=== PATIENT | male | born 1975 | race Two or more races ===

== ENCOUNTER 2021-04-03 09:01 | Outpatient (CLI) | payer OTHER | END 2021-04-03 12:06 | disposition home or self-care (01) | LOC: LAB 09:01 | DX: Z03.818 Encounter for observation for suspected exposure to other biological agents ruled out (principal) ==

== ENCOUNTER 2021-05-25 07:00 | Outpatient (CLI) | payer OTHER | END 2021-05-25 07:15 | disposition home or self-care (01) | LOC: PPH VACUNA 07:00 | PROVIDERS: ATTEND Emergency Medicine Pediatric Emergency Medicine | DX: Z23 Encounter for immunization (principal) ==

== ENCOUNTER → 2021-08-08 | Outpatient (CLI) | payer OTHER ==
[~2021-08-08] MED LIST: AZELASTIN-FLUTI23 GM; CLONAZEPAM0.5 M1 PO; PAXIL CR37.5 MG PO
== END | disposition home or self-care (01) ==
LOC: PPH VACUNA 08:00
PROVIDERS: ATTEND Emergency Medicine Pediatric Emergency Medicine
DX: Z23 Encounter for immunization (principal)
CPT/HCPCS: 90686; G0008

== ENCOUNTER 2021-09-05 13:11 | Outpatient (CLI) | payer OTHER | END 2021-09-05 15:16 | disposition home or self-care (01) | LOC: LAB 13:11 | PROVIDERS: ATTEND Emergency Medicine Pediatric Emergency Medicine | DX: Z03.818 Encounter for observation for suspected exposure to other biological agents ruled out (principal) ==

== ENCOUNTER 2021-09-11 10:00 | Inpatient (IN) | payer OTHER ==
[~2021-09-11] VITALS: Ht 172.7 cm; Wt 97.5 kg
[2021-09-11] MEDS ORDERED: CLONAZEPAM0.5 M1 PO (10:03)
[2021-09-11] MEDS ORDERED: PAXIL CR37.5 MG PO (10:03)
--- NOTE | 2021-09-11 10:09 | NUR ---
SE RECIBE PTE ALERTA Y ORIENTADO X3 QUIEN REFIERE DESDE HACE CHARLES SENTIRSE CON MALESTAR ESTOMACAL MILES DESDE FAY LOWERY SENTIDO UN DEJA DOLOR PELVICO Y SE LE ESTA DIFICULTANDO PARA IR AL TANNER. LOWERY CAMPOS DOS VECES Y REFIERE JENNY HECHO EN 2 OCASIONES POCA DIARREA. SE MONITOREAN S/V Y SE UBICA EN OBSERVACION.
[2021-09-12] MEDS ORDERED: AZELASTIN-FLUTI23 GM (08:14)
== END 2021-09-14 18:48 | disposition home or self-care (01) | DRG 392 ==
LOC: ER 10:00 → MEDI 17:44 → SURG 17:44
PROVIDERS: ADMIT Internal Medicine; ATTEND Internal Medicine
PROC: BW21YZZ Computerized Tomography (CT Scan) of Abdomen and Pelvis using Other Contrast (ICD-10-PCS; principal; 2021-09-11)
DX: K57.92 Diverticulitis of intestine, part unspecified, without perforation or abscess without bleeding (principal); R10.32 Left lower quadrant pain; Z20.822 Contact with and (suspected) exposure to COVID-19

== ENCOUNTER → 2021-09-18 12:48 | Outpatient (CLI) | payer OTHER | END | disposition home or self-care (01) | LOC: LAB 12:48 | PROVIDERS: ATTEND Emergency Medicine Pediatric Emergency Medicine | DX: Z03.818 Encounter for observation for suspected exposure to other biological agents ruled out (principal) ==

== ENCOUNTER 2021-11-05 10:25 | Outpatient (CLI) | payer OTHER | END 2021-11-05 11:00 | disposition home or self-care (01) | LOC: NUCLEAR 10:25 | PROVIDERS: ATTEND Internal Medicine Cardiovascular Disease | DX: I11.9 Hypertensive heart disease without heart failure (principal) ==

== ENCOUNTER 2021-11-23 07:36 | Outpatient (CLI) | payer OTHER | END 2021-11-23 07:37 | disposition home or self-care (01) | LOC: NUCLEAR 07:36 | PROVIDERS: ATTEND Internal Medicine Cardiovascular Disease | DX: I20.9 Angina pectoris, unspecified (principal) ==

== ENCOUNTER 2022-01-02 15:20 | Outpatient (CLI) | payer OTHER | END 2022-01-02 15:22 | disposition home or self-care (01) | LOC: LAB 15:20 | DX: Z03.818 Encounter for observation for suspected exposure to other biological agents ruled out (principal) ==

== ENCOUNTER 2022-04-17 12:08 | Outpatient (CLI) | payer OTHER | END 2022-04-17 13:00 | disposition home or self-care (01) | LOC: RAD 12:08 | PROVIDERS: ATTEND Physical Medicine & Rehabilitation | DX: M65.871 Other synovitis and tenosynovitis, right ankle and foot (principal) ==

== ENCOUNTER 2022-05-30 14:00 | Outpatient (CLI) | payer OTHER | END 2022-05-30 14:10 | disposition home or self-care (01) | LOC: PPH VACUNA 14:00 | PROVIDERS: ATTEND Emergency Medicine Pediatric Emergency Medicine | DX: Z23 Encounter for immunization (principal) ==

== ENCOUNTER 2022-11-23 10:57 | Outpatient (CLI) | payer OTHER | END 2022-11-23 11:36 | disposition home or self-care (01) | LOC: TOM 10:57 | DX: R10.30 Lower abdominal pain, unspecified (principal); N20.1 Calculus of ureter ==

== ENCOUNTER 2023-02-12 08:50 | Outpatient (CLI) | payer OTHER | END 2023-02-12 09:15 | disposition home or self-care (01) | LOC: SONOGRAMA 08:50 | PROVIDERS: ATTEND Internal Medicine Gastroenterology | DX: R16.2 Hepatomegaly with splenomegaly, not elsewhere classified (principal) ==

== ENCOUNTER 2023-05-01 09:18 | Emergency (ER) | payer OTHER ==
[~2023-05-01] VITALS: Ht 172.7 cm; Wt 95.3 kg
== END 2023-05-01 11:55 | disposition home or self-care (01) ==
LOC: ER 09:18
DX: N50.819 Testicular pain, unspecified (principal)

== ENCOUNTER 2023-06-26 08:29 | Emergency (ER) | payer OTHER ==
[~2023-06-26] VITALS: Ht 172.7 cm; Wt 93.0 kg
[2023-06-26] MEDS ORDERED: CLONAZEPAM0.5 MG (08:37)
[2023-06-26 09:34] LABS: HEMATOCRIT 42.1 % (39.0-48.0); HEMOGLOBIN 14.1 g/dL (13-16.00); MEAN CELL VOLUME 91.5 fL (80.0-100.00); MEAN CORPUSCULAR HEMOGLOBIN 30.7 pg (27.00-32.0); MEAN CORPUSCULAR HGB CONC 33.5 g/dl (32.0-36.0); PLATELET COUNT 255 K/uL (150-450); RED CELL DISTRIBUTION WIDTH 13.5 % (11.5-14.5)
[2023-06-26 10:14] LABS: CALCIUM 9.4 mg/dL (8.5-10.1); CREATININE SERUM 0.85 mg/dL (0.70-1.30); GFR 97.04; POTASSIUM 4.28 mEq/L (3.5-5.1)
[2023-06-26 12:00] LABS: URINE APPEARANCE Clear; URINE BILIRRUBIN Negative (NEGATIVE); URINE BLOOD Negative; URINE COLOR Yellow; URINE GLUCOSE Negative (NEGATIVE); URINE LEUKOCYTE Negative; URINE NITRATE Negative; URINE PROTEIN Negative (NEGATIVE); URINE UROBILINOGEN 0.2 E.U./dl
[2023-06-26 12:28] LABS: URINE BACTERIA 2.5 uL (0.0-1933); URINE EPITHELIAL CELLS 0.3 uL (0.0-38.8); URINE WBC 1.2 uL (0.0-23.2)
== END 2023-06-26 18:54 | disposition home or self-care (01) ==
LOC: ER 08:30
PROVIDERS: Emergency Medicine
DX: K57.90 Diverticulosis of intestine, part unspecified, without perforation or abscess without bleeding (principal); F32.A Depression, unspecified; N20.0 Calculus of kidney

== ENCOUNTER 2023-09-26 11:28 | Emergency (ER) | payer OTHER ==
[~2023-09-26] VITALS: Ht 172.7 cm; Wt 91.6 kg
[~2023-09-26 11:28] MED LIST changes: +CLONAZEPAM0.5 MG
[2023-09-26 13:24] LABS: HEMATOCRIT 47.4 % (39.0-48.0); HEMOGLOBIN 16.2 g/dL (13-16.00); MEAN CELL VOLUME 91.3 fL (80.0-100.00); MEAN CORPUSCULAR HEMOGLOBIN 31.2 pg (27.00-32.0); MEAN CORPUSCULAR HGB CONC 34.2 g/dl (32.0-36.0); PLATELET COUNT 314 K/uL (150-450); RED BLOOD COUNT 5.19 M/uL (4.00-6.00); RED CELL DISTRIBUTION WIDTH 14.2 % (11.5-14.5)
[2023-09-26 13:29] LABS: PH,URINE 6.5 (5.0-8.0); URINE APPEARANCE Clear; URINE BILIRRUBIN Negative (NEGATIVE); URINE BLOOD Negative; URINE COLOR Yellow; URINE GLUCOSE Negative (NEGATIVE); URINE LEUKOCYTE Negative; URINE NITRATE Negative; URINE PROTEIN Trace (NEGATIVE); URINE UROBILINOGEN 0.2 E.U./dl
[2023-09-26 13:33] LABS: URINE EPITHELIAL CELLS 6.9 uL (0.0-38.8); URINE RBC 7.6 uL (0.0-20.8); URINE WBC 15.6 uL (0.0-23.2)
[2023-09-26 14:29] LABS: CREATININE SERUM 0.99 mg/dL (0.70-1.30); GFR 81.38; POTASSIUM 3.69 mEq/L (3.5-5.1)
== END 2023-09-26 17:32 | disposition home or self-care (01) ==
LOC: ER 11:28
PROVIDERS: Emergency Medicine
DX: K52.89 Other specified noninfective gastroenteritis and colitis (principal); F32.89 Other specified depressive episodes; Z20.822 Contact with and (suspected) exposure to COVID-19

== ENCOUNTER 2025-06-07 10:48 | Outpatient (CLI) | payer OTHER | END 2025-06-07 10:49 | disposition home or self-care (01) | LOC: RAD 10:48 | PROVIDERS: ATTEND Emergency Medicine Pediatric Emergency Medicine | DX: R05.3 Chronic cough (principal); R09.81 Nasal congestion; J32.2 Chronic ethmoidal sinusitis ==

== ENCOUNTER 2025-06-22 09:56 | Outpatient (CLI) | payer OTHER ==
[~2025-06-22 09:56] MED LIST changes: +DICLOFENAC POTA50 MG PO; +METAXALONE800 MG PO
== END 2025-06-22 10:09 | disposition home or self-care (01) ==
LOC: RAD 09:56
PROVIDERS: ATTEND Physical Medicine & Rehabilitation
DX: H71.21 Cholesteatoma of mastoid, right ear (principal); H72.11 Attic perforation of tympanic membrane, right ear; H90.11 Conductive hearing loss, unilateral, right ear, with unrestricted hearing on the contralateral side; H72.01 Central perforation of tympanic membrane, right ear; H70.11 Chronic mastoiditis, right ear